=== PATIENT | female | born 1950 | race Caucasian/White ===

== ENCOUNTER 2024-03-24 00:24 | Emergency (ER) | payer OTHER, MEDICAID ==
[~2024-03-24] VITALS: Ht 167.6 cm; Wt 109.0 kg
[2024-03-24 01:00] VITALS: PULSE 64; RESP 13; TEMP 98.3; O2SAT 99
[2024-03-24 02:03] LABS: Basophils # (auto) 0 10 ^3/uL (0-0.2); Basophils % (auto) 0.4 % (0.0-2.0); Eosinophils # (auto) 0.2 10 ^3/uL (0-0.8); Eosinophils % (auto) 1.5 % (0.0-7.0); Hematocrit 43.1 % (36.0-46.0); Lymphocytes # (auto) 2.5 10 ^3/uL (0.4-5.4); Lymphocytes % (auto) 23.4 % (10.0-50.0); Mean Corpuscular Hemoglobin 24.8 pg (28.0-32.0); Mean Corpuscular Hgb Conc. 32.5 g/dL (32.0-36.0); Mean Corpuscular Volume 76.4 fL (80.0-100.0); Monocytes # (auto) 0.7 10 ^3/uL (0-1.3); Monocytes % (auto) 6.3 % (0.0-12.0); Neutrophils # (auto) 7.4 10 ^3/uL (1.6-8.6); Neutrophils % (auto) 68.4 % (37.0-80.0); Nucleated Red Blood Cells % 0.3 %; Red Blood Cells 5.65 10^6/uL (4.0-5.20); Red Cell Distribution Width 16.2 % (11.8-14.3); White Blood Cell 10.8 10^3/uL (4.4-10.8)
[2024-03-24] MEDS: SODIUM CHLORIDE 0.9% 500 ML IV ONE (02:07)
[2024-03-24] MEDS: ONDANSETRON HCL 4 MG/2 ML VIAL IV ONE (02:07)
[2024-03-24 02:11] LABS: Urine Bacteria None Seen /hpf (None Seen)
[2024-03-24 02:16] LABS: Alanine Aminotransferase 12 U/L (7-40); Albumin 4.2 g/dL (3.2-4.8); Alkaline Phosphatase 146 U/L (46-116); Anion Gap 8 (5-15); Aspartate Aminotransferase 32 U/L (13-40); BUN/Creatinine Ratio 13.1 (10.0-20.0); Bilirubin, Total 0.4 mg/dL (0.2-1.0); Blood Urea Nitrogen 14 mg/dL (9-23); Calcium 9.7 mg/dL (8.5-10.1); Carbon Dioxide 22 mmol/L (20-30); Chloride 108 mmol/L (98-107); Glucose 114 mg/dL (74-106); Potassium 4.2 mmol/L (3.5-5.1); Sodium 138 mmol/L (136-145); Total Protein 7.5 g/dL (5.7-8.2)
[2024-03-24 03:14] LABS: Urine Blood Negative /uL (Negative); Urine Clarity Turbid (Clear); Urine Color Light-Yellow (Yellow); Urine Protein, UAD Negative (Negative); Urine Urobilinogen Normal (Negative); Urine WBC 3 /hpf (0 - 5); Urine pH 5.5 (5.0-9.0)
[2024-03-24 08:08] VITALS: PULSE 69; RESP 14; O2SAT 96
[2024-03-24] MEDS: HYDROcodone-ACET 10/325MG TAB PO ONE (09:09)
[2024-03-24 14:00] VITALS: BP 97/64; PULSE 64; RESP 17; O2SAT 96
== END 2024-03-24 15:49 | disposition home or self-care (01) ==
LOC: EDBD 00:24 → ER 00:24
DX: R11.2 Nausea with vomiting, unspecified (principal); J44.9 Chronic obstructive pulmonary disease, unspecified; E11.9 Type 2 diabetes mellitus without complications; I10 Essential (primary) hypertension; Z88.0 Allergy status to penicillin
CPT/HCPCS: 36415; 74176; 80053; 81001; 82962; 85025; 96361; 96374; 99285; J2405; J7040

== ENCOUNTER 2024-04-25 19:57 | Inpatient (IN) | payer OTHER, MEDICAID ==
[~2024-04-25] VITALS: Ht 170.2 cm; Wt 97.7 kg
[2024-04-25 21:01] LABS: Basophils # (auto) 0.1 10 ^3/uL (0-0.2); Basophils % (auto) 0.4 % (0.0-2.0); Eosinophils # (auto) 0.1 10 ^3/uL (0-0.8); Hemoglobin 11.1 g/dL (12.2-16.2); Lymphocytes # (auto) 1.7 10 ^3/uL (0.4-5.4); Monocytes # (auto) 1.1 10 ^3/uL (0-1.3); Neutrophils # (auto) 11.1 10 ^3/uL (1.6-8.6)
[2024-04-25 21:02] LABS: Eosinophils % (auto) 0.7 % (0.0-7.0); Hematocrit 34.1 % (36.0-46.0); Lymphocytes % (auto) 12.4 % (10.0-50.0); Mean Corpuscular Hemoglobin 24.6 pg (28.0-32.0); Mean Corpuscular Hgb Conc. 32.5 g/dL (32.0-36.0); Mean Corpuscular Volume 75.6 fL (80.0-100.0); Monocytes % (auto) 7.6 % (0.0-12.0); Neutrophils % (auto) 78.9 % (37.0-80.0); Red Blood Cells 4.51 10^6/uL (4.0-5.20); Red Cell Distribution Width 15.9 % (11.8-14.3); White Blood Cell 14.1 10^3/uL (4.4-10.8)
[2024-04-25 21:18] LABS: Alanine Aminotransferase 15 U/L (7-40); Albumin 3.6 g/dL (3.2-4.8); Alkaline Phosphatase 186 U/L (46-116); Anion Gap 9 (5-15); Aspartate Aminotransferase 22 U/L (13-40); BUN/Creatinine Ratio 19.3 (10.0-20.0); Bilirubin, Total 0.4 mg/dL (0.2-1.0); Blood Urea Nitrogen 22 mg/dL (9-23); Calcium 8.9 mg/dL (8.7-10.4); Carbon Dioxide 19 mmol/L (20-30); Chloride 104 mmol/L (98-107); Glucose 137 mg/dL (74-106); Lipase 24 U/L (12-53); Potassium 5.1 mmol/L (3.5-5.1); Sodium 132 mmol/L (136-145); Total Protein 6.7 g/dL (5.7-8.2)
[2024-04-25 21:28] VITALS: PULSE 73; RESP 16; O2SAT 96
[2024-04-25] MEDS: HYDROcodone-ACET 10/325MG TAB PO ONE (21:45)
[2024-04-25] MEDS ORDERED: VANCOMYCIN PER PHARMACY 0 MG IV SCH (23:15)
[2024-04-26] MEDS ORDERED: DOCUSATE SOD 100 MG CAP PO PRN
[2024-04-26] MEDS ORDERED: DEXTROSE (50%) 50ML SYRG IV PRN
[2024-04-26] MEDS ORDERED: NITROGLYCERIN 0.4 MG SL TAB SL PRN
[2024-04-26] MEDS ORDERED: MORPHINE SULFATE INJ 2 MG/ml SYRG IV PRN
[2024-04-26] MEDS ORDERED: hydrALAZINE HCL 20 MG/ML VL IV PRN
[2024-04-26] MEDS: cefTRIAXone 1GM/50ML D5W 50 ML IV ONE (01:23)
[2024-04-26] MEDS: SODIUM CHLORIDE 0.9% 1,000 ML IV SCH (01:44)
[2024-04-26] MEDS: VANCOMYCIN 1GM/200ML 200 ML IV ONE (01:44)
[2024-04-26] MEDS: TETANUS-DIPTH-ACEL PERTUSSIS 0.5ML SYR Tdap IM ONE (02:13)
[2024-04-26] MEDS: HYDROcodone-ACET 5/325MG TAB PO PRN (03:30)
[2024-04-26 04:10] VITALS: PULSE 87; RESP 18; O2SAT 98
[2024-04-26 05:00] VITALS: BP 122/64; PULSE 69; RESP 19; TEMP 96.1; O2SAT 96
[2024-04-26] MEDS: ACCU-CHEK COMFORT CURVE STRIP VI SCH (06:02)
[2024-04-26] MEDS: InsuLIN REG 1unit/0.01ml Soln (100units/ml) SC SCH ×2 (06:02→22:00)
[2024-04-26] MEDS: ZINC SULFATE 220mg CAP or TAB PO SCH (08:42)
[2024-04-26] MEDS: ASCORBIC ACID 500 MG TAB PO SCH (08:42)
[2024-04-26] MEDS: LISINOPRIL 20 MG TAB PO SCH (08:44)
[2024-04-26 09:00] VITALS: BP 137/64; PULSE 74; RESP 16; TEMP 98; O2SAT 98
[2024-04-26] MEDS: MULTIPLE VITAMIN TAB PO SCH (09:00)
[2024-04-26] MEDS: ONDANSETRON HCL 4 MG/2 ML VIAL IV PRN (10:53)
[2024-04-26 13:00] VITALS: BP 114/51; PULSE 84; RESP 16; TEMP 98; O2SAT 98
[2024-04-26] MEDS: OXYCODONE W/ ACETAMINOPHEN 5/325MG TABLET PO SCH (14:11)
[2024-04-26 17:00] VITALS: BP 117/67; PULSE 73; RESP 16; TEMP 97.3; O2SAT 98
[2024-04-26] MEDS ORDERED: FOLI-119 PO (17:20)
[2024-04-26] MEDS ORDERED: PANT40TA2 PO (17:20)
[2024-04-26] MEDS ORDERED: METO25TA5 PO (17:20)
[2024-04-26] MEDS ORDERED: ASPI325T6 PO (17:20)
[2024-04-26] MEDS ORDERED: TAMS1CAP25 PO (17:20)
[2024-04-26] MEDS ORDERED: DOCU-94 PO (17:20)
[2024-04-26] MEDS ORDERED: SERT-289 PO (17:20)
[2024-04-26] MEDS ORDERED: OXY5T PO (17:20)
[2024-04-26] MEDS ORDERED: ACET-1881 PO (17:20)
[2024-04-26] MEDS ORDERED: SULF400I3 PO (17:20)
[2024-04-26] MEDS ORDERED: MAGN400T40 PO (17:20)
[2024-04-26] MEDS: RIVAROXABAN 20 MG TAB PO SCH (18:03)
[2024-04-26] MEDS: VANCOMYCIN 1GM/200ML 200 ML IV SCH (18:03)
[2024-04-26 21:10] VITALS: BP 101/58; PULSE 73; RESP 16; TEMP 98.4; O2SAT 98
[2024-04-26] MEDS: MORPHINE SULFATE INJ 2 MG/ml SYRG IV PRN (22:54)
[2024-04-27 01:18] LABS: Basophils # (auto) 0.1 10 ^3/uL (0-0.2); Basophils % (auto) 0.5 % (0.0-2.0); Eosinophils # (auto) 0.2 10 ^3/uL (0-0.8); Eosinophils % (auto) 1.6 % (0.0-7.0); Hematocrit 33.8 % (36.0-46.0); Hemoglobin 10.9 g/dL (12.2-16.2); Lymphocytes # (auto) 1.7 10 ^3/uL (0.4-5.4); Lymphocytes % (auto) 14.2 % (10.0-50.0); Mean Corpuscular Hemoglobin 24.7 pg (28.0-32.0); Mean Corpuscular Hgb Conc. 32.1 g/dL (32.0-36.0); Mean Corpuscular Volume 76.8 fL (80.0-100.0); Monocytes # (auto) 1.1 10 ^3/uL (0-1.3); Monocytes % (auto) 9.5 % (0.0-12.0); Neutrophils # (auto) 8.7 10 ^3/uL (1.6-8.6); Neutrophils % (auto) 74.2 % (37.0-80.0); Nucleated Red Blood Cells % 0.1 %; Red Cell Distribution Width 16.1 % (11.8-14.3); White Blood Cell 11.7 10^3/uL (4.4-10.8)
[2024-04-27 01:39] LABS: Alanine Aminotransferase 18 U/L (7-40); Albumin 3.3 g/dL (3.2-4.8); Alkaline Phosphatase 182 U/L (46-116); Anion Gap 10 (5-15); Aspartate Aminotransferase 25 U/L (13-40); BUN/Creatinine Ratio 18.4 (10.0-20.0); Bilirubin, Total 0.3 mg/dL (0.2-1.0); Blood Urea Nitrogen 19 mg/dL (9-23); Calcium 8.5 mg/dL (8.7-10.4); Carbon Dioxide 18 mmol/L (20-30); Chloride 107 mmol/L (98-107); Glucose 110 mg/dL (74-106); Potassium 4.7 mmol/L (3.5-5.1); Sodium 135 mmol/L (136-145); Total Protein 6.3 g/dL (5.7-8.2)
[2024-04-27 05:00] VITALS: BP 133/49; PULSE 66; RESP 16; TEMP 98.5; O2SAT 96
[2024-04-27] MEDS: ASCORBIC ACID 500 MG TAB PO SCH (10:54)
[2024-04-27] MEDS: MULTIPLE VITAMIN TAB PO SCH (10:54)
[2024-04-27] MEDS: Glucerna Carbsteady SHAKE Vanilla 8oz PO SCH (12:11)
[2024-04-27 13:00] VITALS: BP 103/49; PULSE 69; RESP 20; TEMP 98; O2SAT 96
[2024-04-27] MEDS: CLINDAMYCIN 600MG IV 50 ML IV SCH (14:57)
[2024-04-27 17:00] VITALS: BP 119/47; PULSE 67; RESP 18; TEMP 98.1; O2SAT 98
[2024-04-27 21:00] VITALS: BP 120/46; PULSE 65; RESP 18; TEMP 97.9; O2SAT 98
[2024-04-27] MEDS: ACETAMINOPHEN 325 MG TAB PO PRN (21:16)
[2024-04-27] MEDS: OXYCODONE W/ ACETAMINOPHEN 5/325MG TABLET PO SCH (22:27)
[2024-04-28 01:00] VITALS: BP 113/46; PULSE 59; RESP 17; TEMP 97.9; O2SAT 97
[2024-04-28 08:00] VITALS: PULSE 63; RESP 19; O2SAT 98
[2024-04-28] MEDS ORDERED: DOCU-265 PO (08:55)
[2024-04-28] MEDS ORDERED: ACET-1882 PO (08:55)
[2024-04-28] MEDS ORDERED: LISI20TA56 PO (08:55)
[2024-04-28] MEDS ORDERED: MULT-443 PO (08:55)
[2024-04-28 09:00] VITALS: BP 116/56; PULSE 63; RESP 19; TEMP 97.6; O2SAT 98
[2024-04-28] MEDS ORDERED: DIGO0.2525 PO (11:07)
[2024-04-28] MEDS ORDERED: LORA-655 PO (11:07)
[2024-04-28] MEDS ORDERED: RIVA20TA PO (11:07)
[2024-04-28] MEDS ORDERED: SITA100T7 PO (11:07)
[2024-04-28] MEDS ORDERED: QUET50TA PO (11:07)
[2024-04-28] MEDS ORDERED: METF-371 PO (11:07)
[2024-04-28] MEDS ORDERED: AMLO1TAB22 PO (11:07)
[2024-04-28] MEDS ORDERED: ESCI20TA PO (11:07)
[2024-04-28] MEDS ORDERED: DOCU-94 PO (11:07)
[2024-04-28] MEDS: levoFLOXacin 500MG 100 ML IV ONE (12:40)
[2024-04-28 17:00] VITALS: BP 102/47; PULSE 67; RESP 18; TEMP 97.4; O2SAT 97
[2024-04-28 18:50] LABS: INR 1.29 (0.9-1.15); Partial Thromboplastin Time 34.6 SEC (24.5-34.5); Prothrombin Time 13.4 sec (9.3-11.8)
[2024-04-28] MEDS: QUEtiapine FUMARATE 25 MG TAB PO SCH (21:01)
[2024-04-29 05:00] VITALS: BP 115/54; PULSE 62; RESP 18; TEMP 98.2; O2SAT 99
[2024-04-29] MEDS: LIDOCAINE 1% (LOCAL ANESTH.) PF 5ml SDV ID ONE (08:45)
[2024-04-29 09:00] VITALS: BP 113/50; PULSE 57; RESP 17; TEMP 97.6; O2SAT 93
[2024-04-29] MEDS: levoFLOXacin 500MG 100 ML IV SCH (09:42)
[2024-04-29] MEDS: CITALOPRAM HYDROBR 20 MG TAB PO SCH (09:42)
[2024-04-29] MEDS: SODIUM CHLOR 0.9% PF (SALINE LOCK) 10ML VIAL/SYR IV SCH (10:35)
[2024-04-29] MEDS: ERTAPENEM SOD INJ 1 GM in SODIUM CHL 0.9% 50 ML IV SCH (10:35)
[2024-04-29 11:41] VITALS: BP 113/50; TEMP 36.4
[2024-04-29 20:07] VITALS: RESP 18
[2024-04-29 22:00] VITALS: BP 118/42; PULSE 68; RESP 18; TEMP 98.3; O2SAT 98
== END 2024-04-29 20:35 | DRG 637 ==
LOC: EDBD 19:57 → ER 19:57 → OVERFLOW 04-26 00:03 → CENTRAL 04-26 04:09
PROVIDERS: ADMIT Family Medicine; ATTEND Family Medicine
PROC: 02HV33Z Insertion of Infusion Device into Superior Vena Cava, Percutaneous Approach (ICD-10-PCS; principal; 2024-04-29)
DX: E11.628 Type 2 diabetes mellitus with other skin complications (principal); E43 Unspecified severe protein-calorie malnutrition; L03.116 Cellulitis of left lower limb; E87.1 Hypo-osmolality and hyponatremia; I16.0 Hypertensive urgency; E11.21 Type 2 diabetes mellitus with diabetic nephropathy; E11.40 Type 2 diabetes mellitus with diabetic neuropathy, unspecified; E11.65 Type 2 diabetes mellitus with hyperglycemia; E11.621 Type 2 diabetes mellitus with foot ulcer; E66.01 Morbid (severe) obesity due to excess calories; E87.5 Hyperkalemia; D72.829 Elevated white blood cell count, unspecified; E11.69 Type 2 diabetes mellitus with other specified complication; E88.09 Other disorders of plasma-protein metabolism, not elsewhere classified; J44.9 Chronic obstructive pulmonary disease, unspecified; I48.91 Unspecified atrial fibrillation; B96.4 Proteus (mirabilis) (morganii) as the cause of diseases classified elsewhere; Z74.01 Bed confinement status; Z88.0 Allergy status to penicillin; Z82.49 Family history of ischemic heart disease and other diseases of the circulatory system; Z79.4 Long term (current) use of insulin; Z68.33 Body mass index [BMI] 33.0-33.9, adult; Z51.5 Encounter for palliative care
CPT/HCPCS: 36415; 36569; 71045; 73700; 80053; 80202; 82962; 83605; 83690; 83880; 84484; 85025; 85610; 85730; 87040; 87077; 87081; 87086; 87088; 87186; 87205; 93926; 96361; 96365; 96368; 97163; G0378; J1335; J1956; J2405; J3490

== ENCOUNTER 2024-05-12 17:26 | Inpatient (IN) | payer OTHER, MEDICAID ==
[~2024-05-12] VITALS: Ht 165.1 cm; Wt 115.3 kg
[~2024-05-12 17:26] MED LIST: ACET-1882 PO; AMLO1TAB22 PO; DIGO0.2525 PO; DOCU-265 PO; DOCU-94 PO; ESCI20TA PO; LISI20TA56 PO; LORA-655 PO; METF-371 PO; MULT-443 PO; QUET50TA PO; RIVA20TA PO; SITA100T7 PO
[2024-05-12] MEDS: SODIUM CHLORIDE 0.9% 500 ML IV ONE (18:58)
[2024-05-12] MEDS: ONDANSETRON HCL 4 MG/2 ML VIAL IV ONE (18:58)
[2024-05-12] MEDS: MORPHINE SULFATE 4 MG/ML SYR/VIAL IV ONE (18:58)
[2024-05-12] MEDS: VANCOMYCIN 1GM/200ML 200 ML IV ONE (18:59)
[2024-05-12 21:35] LABS: Basophils # (auto) 0.1 10 ^3/uL (0-0.2); Basophils % (auto) 0.8 % (0.0-2.0); Eosinophils # (auto) 0.1 10 ^3/uL (0-0.8); Eosinophils % (auto) 0.9 % (0.0-7.0); Hematocrit 31.2 % (36.0-46.0); Hemoglobin 9.9 g/dL (12.2-16.2); Lymphocytes # (auto) 2.5 10 ^3/uL (0.4-5.4); Lymphocytes % (auto) 22.4 % (10.0-50.0); Mean Corpuscular Hemoglobin 24.6 pg (28.0-32.0); Mean Corpuscular Hgb Conc. 31.8 g/dL (32.0-36.0); Mean Corpuscular Volume 77.3 fL (80.0-100.0); Monocytes # (auto) 0.5 10 ^3/uL (0-1.3); Monocytes % (auto) 4.2 % (0.0-12.0); Neutrophils # (auto) 7.8 10 ^3/uL (1.6-8.6); Neutrophils % (auto) 71.7 % (37.0-80.0); Nucleated Red Blood Cells % 0.1 %; Red Blood Cells 4.03 10^6/uL (4.0-5.20); Red Cell Distribution Width 16.7 % (11.8-14.3)
[2024-05-12 21:43] LABS: Chloride 107 mmol/L (98-107); Potassium 4.4 mmol/L (3.5-5.1); Sodium 136 mmol/L (136-145)
[2024-05-12 21:44] LABS: Anion Gap 9 (5-15); Calcium 8.6 mg/dL (8.5-10.1); Carbon Dioxide 20 mmol/L (20-30)
[2024-05-12] MEDS ORDERED: ALBUTEROL SULF 2.5 MG/0.5ML(0.5%) NEB SOLN NEB PRN (21:45)
[2024-05-12] MEDS ORDERED: MORPHINE SULFATE INJ 2 MG/ml SYRG IV PRN (21:45)
[2024-05-12] MEDS ORDERED: ONDANSETRON HCL 4 MG/2 ML VIAL IV PRN (21:45)
[2024-05-12] MEDS ORDERED: DEXTROSE (50%) 50ML SYRG IV PRN (21:45)
[2024-05-12 21:49] LABS: BUN/Creatinine Ratio 28.3 (10.0-20.0); Blood Urea Nitrogen 30 mg/dL (9-23); Glucose 98 mg/dL (74-106)
[2024-05-12 21:56] LABS: Lactic Acid w/Reflex 2.6 mmol/L (0.4-2.0)
[2024-05-12 22:17] LABS: Erythrocyte Sedimentation Rate 36 mm/hr (0-20)
[2024-05-12 22:21] VITALS: BP 101/63; PULSE 109; RESP 13; TEMP 98.1; O2SAT 97
[2024-05-12 22:29] LABS: INR 1.19 (0.9-1.15); Partial Thromboplastin Time 36.1 SEC (24.5-34.5); Prothrombin Time 12.5 sec (9.3-11.8)
[2024-05-12 22:43] VITALS: O2SAT 97
[2024-05-12] MEDS: CLINDAMYCIN 600MG IV 50 ML IV SCH (22:47)
[2024-05-12] MEDS: ACETAMINOPHEN 325 MG TAB PO PRN (22:50)
[2024-05-12] MEDS: levoFLOXacin 500MG 100 ML IV SCH (23:50)
[2024-05-13] MEDS: InsuLIN REG 1unit/0.01ml Soln (100units/ml) SC SCH
[2024-05-13] MEDS: ACCU-CHEK COMFORT CURVE STRIP VI SCH
[2024-05-13] MEDS: SODIUM CHLORIDE 0.9% 1,000 ML IV ONE (00:17)
[2024-05-13] MEDS: HYDROcodone-ACET 5/325MG TAB PO PRN (05:18)
[2024-05-13 07:39] VITALS: PULSE 107; RESP 12; O2SAT 98
[2024-05-13 09:09] LABS: Alanine Aminotransferase 23 U/L (7-40); Albumin 3.1 g/dL (3.2-4.8); Alkaline Phosphatase 192 U/L (46-116); Anion Gap 8 (5-15); Aspartate Aminotransferase 31 U/L (13-40); BUN/Creatinine Ratio 18.7 (10.0-20.0); Blood Urea Nitrogen 20 mg/dL (9-23); Calcium 8.6 mg/dL (8.5-10.1); Carbon Dioxide 18 mmol/L (20-30); Chloride 110 mmol/L (98-107); Glucose 104 mg/dL (74-106); Potassium 4.7 mmol/L (3.5-5.1); Sodium 136 mmol/L (136-145)
[2024-05-13 09:10] LABS: Bilirubin, Total 0.4 mg/dL (0.2-1.0); Total Protein 5.4 g/dL (5.7-8.2)
[2024-05-13 09:11] LABS: Basophils # (auto) 0 10 ^3/uL (0-0.2); Eosinophils # (auto) 0.1 10 ^3/uL (0-0.8); Hemoglobin 9.6 g/dL (12.2-16.2); Lymphocytes # (auto) 1.4 10 ^3/uL (0.4-5.4); Monocytes # (auto) 0.5 10 ^3/uL (0-1.3); White Blood Cell 8.4 10^3/uL (4.4-10.8)
[2024-05-13 09:13] LABS: Basophils % (auto) 0.3 % (0.0-2.0); Eosinophils % (auto) 0.9 % (0.0-7.0); Hematocrit 29.9 % (36.0-46.0); Lymphocytes % (auto) 17.1 % (10.0-50.0); Mean Corpuscular Hemoglobin 25.4 pg (28.0-32.0); Mean Corpuscular Hgb Conc. 32.2 g/dL (32.0-36.0); Mean Corpuscular Volume 78.9 fL (80.0-100.0); Monocytes % (auto) 5.6 % (0.0-12.0); Neutrophils # (auto) 6.4 10 ^3/uL (1.6-8.6); Neutrophils % (auto) 76.1 % (37.0-80.0); Red Blood Cells 3.79 10^6/uL (4.0-5.20); Red Cell Distribution Width 17.1 % (11.8-14.3)
[2024-05-13 09:42] LABS: Urine Bacteria FEW /hpf (None Seen); Urine Blood 3+ /uL (Negative); Urine Budding Yeast MANY /hpf (None Seen); Urine Clarity Turbid (Clear); Urine Color Colorless (Yellow); Urine Protein, UAD TRACE (Negative); Urine Specific Gravity 1.012 (1.001-1.035); Urine Urobilinogen Normal (Negative); Urine WBC 295 /hpf (0 - 5); Urine WBC Clumps PRESENT /hpf (None Seen); Urine pH 5.5 (5.0-9.0)
[2024-05-13] MEDS: amLODIPine BESYLATE 5 MG TAB PO SCH (09:56)
[2024-05-13] MEDS: DIGOXIN 0.125 MG TAB PO SCH (09:59)
[2024-05-13 10:00] VITALS: PULSE 101; O2SAT 96
[2024-05-13] MEDS: OXYCODONE W/ ACETAMINOPHEN 5/325MG TABLET PO SCH (14:32)
[2024-05-13 17:46] VITALS: BP 108/61; PULSE 126; RESP 20; TEMP 98.3; O2SAT 91
[2024-05-13 18:01] VITALS: BP 108/61; PULSE 126; RESP 20; TEMP 98.3; O2SAT 91
[2024-05-13] MEDS: RIVAROXABAN 20 MG TAB PO SCH (19:07)
[2024-05-13 20:00] VITALS: PULSE 78; RESP 18; O2SAT 97
[2024-05-13 21:00] VITALS: BP 101/78; PULSE 108; RESP 17; TEMP 97.8; O2SAT 95
[2024-05-13] MEDS: MELATONIN 5 MG TAB PO SCH (23:29)
[2024-05-14] VITALS (9 sets, daily range): BP systolic 99–134; BP diastolic 53–82; PULSE 78–126; RESP 17–20; TEMP 97.7–98.3; O2SAT 91–98
[2024-05-14] MEDS: GABAPENTIN 300 MG CAP PO SCH (13:55)
[2024-05-14] MEDS: LIDOCAINE 5% TOPICAL PATCH TOP SCH (13:59)
[2024-05-14] MEDS: QUEtiapine FUMARATE 25 MG TAB PO SCH (22:57)
[2024-05-14] MEDS: ENOXAPARIN SOD 120 MG/0.8 ML SYRINGE SC SCH (23:00)
[2024-05-15] VITALS (7 sets, daily range): BP systolic 92–109; BP diastolic 41–57; PULSE 81–100; RESP 17–18; TEMP 97.5–98; O2SAT 92–98
[2024-05-15] MEDS: DIGOXIN 0.125 MG TAB PO SCH (10:04)
[2024-05-15] MEDS: LEVOTHYROXINE SODIUM 112 MCG TAB PO ONE (13:44)
[2024-05-16] VITALS (8 sets, daily range): BP systolic 91–105; BP diastolic 44–67; PULSE 81–101; RESP 16–20; TEMP 98–98.9; O2SAT 95–100
[2024-05-16] MEDS: LEVOTHYROXINE SODIUM 112 MCG TAB PO SCH (05:59)
[2024-05-16] MEDS ORDERED: KETAMINE 50mg/ML 1ml syringe ONE (06:52)
[2024-05-16] MEDS ORDERED: LIDOCAINE 1% INJ PF 5ML AMP ONE (06:53)
[2024-05-16] MEDS ORDERED: SODIUM CHLORIDE LOCK 10 ML ONE (06:53)
[2024-05-16] MEDS ORDERED: fentaNYL CITRATE 100 MCG/2 ML VL ONE (06:53)
[2024-05-16] MEDS ORDERED: ONDANSETRON HCL 4 MG/2 ML VIAL ONE (06:53)
[2024-05-16] MEDS ORDERED: PROPOFOL 10 MG/ML 20 ML IV ONE (06:53)
[2024-05-16] MEDS ORDERED: MIDAZOLAM HCL 2MG/2ML 2ml VIAL (1mg/ml) ONE (06:53)
[2024-05-16] MEDS ORDERED: MORPHINE SULFATE INJ 2 MG/ml SYRG IV PRN (07:15)
[2024-05-16] MEDS: ACCU-CHEK COMFORT CURVE STRIP VI ONE (07:15)
[2024-05-16] MEDS: KETOROLAC TROMETH 30 MG/ML 1ML VIAL IV ONE (07:15)
[2024-05-16] MEDS: METOCLOPRAMIDE HCL 5MG/ml INJ 2ml VIAL IV ONE (07:15)
[2024-05-16] MEDS ORDERED: fentaNYL CITRATE 100 MCG/2 ML VL IV PRN (07:15)
[2024-05-16] MEDS ORDERED: HYDROmorphone HCL 2 MG/ML VL/or syr IV PRN ×2 (07:15)
[2024-05-16] MEDS: BUPIVACAINE HCL 0.25% P/F 10 ML VIAL ONE (07:43)
[2024-05-16] MEDS: LIDOCAINE 1% (LOCAL ANESTH.) PF 5ml SDV ONE (07:43)
[2024-05-16] MEDS: METOPROLOL TARTRATE 25 MG TAB PO SCH (22:01)
[2024-05-17] VITALS (12 sets, daily range): BP systolic 76–113; BP diastolic 35–63; PULSE 82–96; RESP 16–21; TEMP 97.7–99.7; O2SAT 93–100
[2024-05-17 01:47] LABS: Urine Bacteria FEW /hpf (None Seen); Urine Blood 2+ /uL (Negative); Urine Budding Yeast FEW /hpf (None Seen); Urine Clarity Turbid (Clear); Urine Color Yellow (Yellow); Urine Mucus FEW (None Seen); Urine Protein, UAD 2+ (Negative); Urine Specific Gravity 1.019 (1.001-1.035); Urine Urobilinogen Normal (Negative); Urine WBC 106 /hpf (0 - 5); Urine pH 5.5 (5.0-9.0)
[2024-05-17] MEDS: DAKINS QUARTER STR 0.125% (NaHypochlorite) 473 ML TOPICAL SOL TOP SCH (10:38)
[2024-05-17 10:56] LABS: Basophils # (auto) 0 10 ^3/uL (0-0.2); Basophils % (auto) 0.4 % (0.0-2.0); Eosinophils # (auto) 0.1 10 ^3/uL (0-0.8); Eosinophils % (auto) 0.9 % (0.0-7.0); Hematocrit 21.7 % (36.0-46.0); Lymphocytes # (auto) 2.1 10 ^3/uL (0.4-5.4); Mean Corpuscular Hemoglobin 25.3 pg (28.0-32.0); Mean Corpuscular Hgb Conc. 31.2 g/dL (32.0-36.0); Mean Corpuscular Volume 81.3 fL (80.0-100.0); Monocytes % (auto) 14.1 % (0.0-12.0); Neutrophils % (auto) 55.6 % (37.0-80.0); Nucleated Red Blood Cells % 0.2 %; Red Blood Cells 2.67 10^6/uL (4.0-5.20); Red Cell Distribution Width 16.8 % (11.8-14.3); White Blood Cell 7.1 10^3/uL (4.4-10.8)
[2024-05-17 10:59] LABS: Hemoglobin 6.8 g/dL (12.2-16.2)
[2024-05-17 11:28] LABS: Anisocytosis Slight; Hypochromia Slight; Platelet Estimate Decreased
[2024-05-17] MEDS: SODIUM CHLORIDE 0.9% 1,700 ML IV ONE (13:37)
[2024-05-18] VITALS (9 sets, daily range): BP systolic 80–107; BP diastolic 45–78; PULSE 76–94; RESP 16–20; TEMP 97.7–98.8; O2SAT 95–98
[2024-05-18 11:39] LABS: Basophils # (auto) 0.1 10 ^3/uL (0-0.2); Basophils % (auto) 0.9 % (0.0-2.0); Eosinophils # (auto) 0.1 10 ^3/uL (0-0.8); Eosinophils % (auto) 1.3 % (0.0-7.0); Hematocrit 22.4 % (36.0-46.0); Hemoglobin 7.3 g/dL (12.2-16.2); Lymphocytes # (auto) 1.9 10 ^3/uL (0.4-5.4); Mean Corpuscular Hemoglobin 25.7 pg (28.0-32.0); Mean Corpuscular Hgb Conc. 32.4 g/dL (32.0-36.0); Mean Corpuscular Volume 79.2 fL (80.0-100.0); Monocytes # (auto) 0.8 10 ^3/uL (0-1.3); Monocytes % (auto) 12.1 % (0.0-12.0); Neutrophils % (auto) 58.7 % (37.0-80.0); Nucleated Red Blood Cells % 0.1 %; Red Blood Cells 2.83 10^6/uL (4.0-5.20); Red Cell Distribution Width 17.4 % (11.8-14.3); White Blood Cell 6.9 10^3/uL (4.4-10.8)
[2024-05-19] VITALS (9 sets, daily range): BP systolic 93–122; BP diastolic 52–64; PULSE 69–103; RESP 18–20; TEMP 97.6–98.7; O2SAT 90–97
[2024-05-19 13:34] LABS: Basophils # (auto) 0 10 ^3/uL (0-0.2); Eosinophils # (auto) 0.1 10 ^3/uL (0-0.8); Lymphocytes # (auto) 1.6 10 ^3/uL (0.4-5.4); Monocytes # (auto) 0.6 10 ^3/uL (0-1.3); Nucleated Red Blood Cells % 0.1 %
[2024-05-19 13:35] LABS: Basophils % (auto) 0.7 % (0.0-2.0); Eosinophils % (auto) 1.9 % (0.0-7.0); Hematocrit 26.3 % (36.0-46.0); Hemoglobin 8.7 g/dL (12.2-16.2); Lymphocytes % (auto) 24.6 % (10.0-50.0); Mean Corpuscular Hemoglobin 26.6 pg (28.0-32.0); Mean Corpuscular Volume 80.7 fL (80.0-100.0); Monocytes % (auto) 9.4 % (0.0-12.0); Neutrophils # (auto) 4.2 10 ^3/uL (1.6-8.6); Neutrophils % (auto) 63.4 % (37.0-80.0); Red Blood Cells 3.25 10^6/uL (4.0-5.20); Red Cell Distribution Width 18.2 % (11.8-14.3); White Blood Cell 6.6 10^3/uL (4.4-10.8)
[2024-05-19 13:53] LABS: Alanine Aminotransferase 20 U/L (7-40); Albumin 2.7 g/dL (3.2-4.8); Alkaline Phosphatase 182 U/L (46-116); Anion Gap 5 (5-15); Aspartate Aminotransferase 26 U/L (13-40); BUN/Creatinine Ratio 22.1 (10.0-20.0); Blood Urea Nitrogen 21 mg/dL (9-23); Calcium 8.2 mg/dL (8.5-10.1); Carbon Dioxide 24 mmol/L (20-30); Chloride 109 mmol/L (98-107); Glucose 132 mg/dL (74-106); Potassium 4.8 mmol/L (3.5-5.1); Sodium 138 mmol/L (136-145)
[2024-05-19 13:54] LABS: Bilirubin, Total 0.4 mg/dL (0.2-1.0); Total Protein 4.4 g/dL (5.7-8.2)
[2024-05-20] VITALS (7 sets, daily range): BP systolic 94–102; BP diastolic 52–60; PULSE 78–113; RESP 17–20; TEMP 97.5–99.2; O2SAT 91–95
[2024-05-20 18:11] LABS: Basophils # (auto) 0 10 ^3/uL (0-0.2); Eosinophils # (auto) 0 10 ^3/uL (0-0.8); Hemoglobin 9.1 g/dL (12.2-16.2); Lymphocytes # (auto) 1.6 10 ^3/uL (0.4-5.4); Monocytes # (auto) 0.9 10 ^3/uL (0-1.3); Neutrophils # (auto) 9.9 10 ^3/uL (1.6-8.6); Nucleated Red Blood Cells % 0.1 %; White Blood Cell 12.5 10^3/uL (4.4-10.8)
[2024-05-20 18:13] LABS: Basophils % (auto) 0.3 % (0.0-2.0); Eosinophils % (auto) 0.3 % (0.0-7.0); Hematocrit 28.7 % (36.0-46.0); Mean Corpuscular Hemoglobin 25.5 pg (28.0-32.0); Mean Corpuscular Hgb Conc. 31.8 g/dL (32.0-36.0); Mean Corpuscular Volume 80.3 fL (80.0-100.0); Neutrophils % (auto) 79.4 % (37.0-80.0); Red Blood Cells 3.57 10^6/uL (4.0-5.20); Red Cell Distribution Width 18.9 % (11.8-14.3)
[2024-05-20 18:18] LABS: Anion Gap 5 (5-15); Carbon Dioxide 22 mmol/L (20-30); Chloride 108 mmol/L (98-107); Potassium 4.8 mmol/L (3.5-5.1); Sodium 135 mmol/L (136-145)
[2024-05-20 18:19] LABS: Calcium 8.2 mg/dL (8.7-10.4)
[2024-05-20 18:24] LABS: BUN/Creatinine Ratio 23.2 (10.0-20.0); Blood Urea Nitrogen 22 mg/dL (9-23); Glucose 104 mg/dL (74-106)
[2024-05-21 01:00] VITALS: BP 103/61; PULSE 92; RESP 22; TEMP 98.1; O2SAT 95
[2024-05-21 05:00] VITALS: BP 94/56; PULSE 99; RESP 16; TEMP 98; O2SAT 92
[2024-05-21 08:00] VITALS: PULSE 82
[2024-05-21 11:37] LABS: Basophils # (auto) 0 10 ^3/uL (0-0.2); Hemoglobin 8.5 g/dL (12.2-16.2); Lymphocytes # (auto) 1.6 10 ^3/uL (0.4-5.4); Mean Corpuscular Hgb Conc. 32.4 g/dL (32.0-36.0); Red Blood Cells 3.23 10^6/uL (4.0-5.20); White Blood Cell 10.6 10^3/uL (4.4-10.8)
[2024-05-21 11:40] LABS: Basophils % (auto) 0.2 % (0.0-2.0); Eosinophils # (auto) 0.1 10 ^3/uL (0-0.8); Eosinophils % (auto) 0.5 % (0.0-7.0); Hematocrit 26.3 % (36.0-46.0); Lymphocytes % (auto) 15.1 % (10.0-50.0); Mean Corpuscular Hemoglobin 26.4 pg (28.0-32.0); Mean Corpuscular Volume 81.3 fL (80.0-100.0); Monocytes # (auto) 0.9 10 ^3/uL (0-1.3); Monocytes % (auto) 8.5 % (0.0-12.0); Neutrophils % (auto) 75.7 % (37.0-80.0); Nucleated Red Blood Cells % 0.1 %; Red Cell Distribution Width 19.3 % (11.8-14.3)
[2024-05-21 11:48] LABS: Alanine Aminotransferase 13 U/L (7-40); Albumin 2.6 g/dL (3.2-4.8); Alkaline Phosphatase 168 U/L (46-116); Anion Gap 6 (5-15); Aspartate Aminotransferase 17 U/L (13-40); BUN/Creatinine Ratio 18.3 (10.0-20.0); Blood Urea Nitrogen 17 mg/dL (9-23); Calcium 7.8 mg/dL (8.5-10.1); Carbon Dioxide 22 mmol/L (20-30); Chloride 109 mmol/L (98-107); Glucose 157 mg/dL (74-106); Potassium 4.1 mmol/L (3.5-5.1); Sodium 137 mmol/L (136-145)
[2024-05-21 11:49] LABS: Bilirubin, Total 0.5 mg/dL (0.2-1.0); Total Protein 4.5 g/dL (5.7-8.2)
[2024-05-21] MEDS: SODIUM CHLORIDE 0.9% 250 ML IV ONE (12:37)
[2024-05-21 12:46] VITALS: BP 86/45; PULSE 90; RESP 20; TEMP 98.1; O2SAT 96
[2024-05-21 16:58] VITALS: BP 111/62; PULSE 108; RESP 21; TEMP 98.3; O2SAT 95
[2024-05-21 17:01] VITALS: BP 86/47; PULSE 90; TEMP 36.8
[2024-05-21] MEDS ORDERED: ATORVASTATIN 20 MG TAB PO SCH (22:00)
== END 2024-05-21 19:40 | DRG 854 ==
LOC: EDBD 17:26 → ER 17:29 → OVERFLOW 21:56 → WEST WING 05-13 17:39 → TELE-WESTW 05-14 17:17
PROVIDERS: ADMIT Nurse Practitioner; ATTEND Internal Medicine
PROC: 0QBP0ZZ Excision of Left Metatarsal, Open Approach (ICD-10-PCS; 2024-05-16)
PROC: 0QTP0ZZ Resection of Left Metatarsal, Open Approach (ICD-10-PCS; principal; 2024-05-16 07:31)
PROC: 30233N1 Transfusion of Nonautologous Red Blood Cells into Peripheral Vein, Percutaneous Approach (ICD-10-PCS; 2024-05-17)
DX: A41.9 Sepsis, unspecified organism (principal); D62 Acute posthemorrhagic anemia; E11.52 Type 2 diabetes mellitus with diabetic peripheral angiopathy with gangrene; I48.19 Other persistent atrial fibrillation; M86.8X7 Other osteomyelitis, ankle and foot; E87.20 Acidosis, unspecified; E11.69 Type 2 diabetes mellitus with other specified complication; I10 Essential (primary) hypertension; J44.9 Chronic obstructive pulmonary disease, unspecified; E66.01 Morbid (severe) obesity due to excess calories; D63.8 Anemia in other chronic diseases classified elsewhere; E03.9 Hypothyroidism, unspecified; S90.821A Blister (nonthermal), right foot, initial encounter; D69.6 Thrombocytopenia, unspecified; E11.621 Type 2 diabetes mellitus with foot ulcer; L97.519 Non-pressure chronic ulcer of other part of right foot with unspecified severity; Z88.0 Allergy status to penicillin; Z82.49 Family history of ischemic heart disease and other diseases of the circulatory system; Z74.01 Bed confinement status; Z79.4 Long term (current) use of insulin; Z79.01 Long term (current) use of anticoagulants; X58.XXXA Exposure to other specified factors, initial encounter; Y93.89 Activity, other specified; Y92.89 Other specified places as the place of occurrence of the external cause; Y99.8 Other external cause status
CPT/HCPCS: 36415; 71045; 73700; 76642; 80048; 80053; 80061; 80162; 81001; 82962; 83036; 83605; 83735; 83880; 84443; 85025; 85610; 85652; 85730; 86850; 86900; 86901; 86920; 87040; 87070; 87075; 87077; 87186; 87205; 93005; 93306; 93926; 96361; 96365; 96366; 96367; 96375; G0378; J1956; J2250; J2405; J2704; J3490